=== PATIENT | male | born 1985 | race African-American/Black ===

== ENCOUNTER 2016-11-04 13:30 | Emergency (ER) | payer SELFPAY ==
[~2016-11-04] VITALS: Ht 182.9 cm; Wt 90.7 kg
[~2016-11-04 13:30] MED LIST: TRAM1TAB4 PO
[2016-11-04 13:46] VITALS: BP 133/78
[2016-11-04] MEDS ORDERED: IBUPROFEN 800 MG TABLET. PO ONE (14:30)
--- NOTE | 2016-11-04 15:29 | RAD ---
Indication nontraumatic pain. AP and lateral views of the right calcaneus were obtained. No acute or significant bony finding is seen involving the calcaneus
--- NOTE | 2016-11-04 15:38 | PHYS DOC ---
Past Medical History Past Medical History: No Pertinent History Past Surgical History: No Surgical History Alcohol Use: Heavy Drug Use: None Adult General Chief Complaint Chief Complaint: FOOT INJURY PAIN HPI HPI Patient is a 31 year old male presents to the emergency department with a c/o right heel pain. Patient states he woke up with the pain. Denies taking any medication for the pain. He is unsure if he injured the heel as he states it was 03 of November. Patient states he was parting last night and cannot remember what has happened. Denies numbness or tingling to the toes, good sensation noted. Review of Systems Review of Systems Constitutional: Denies fever or chills [] Eyes: Denies change in visual acuity, redness, or eye pain [] HENT: Denies nasal congestion or sore throat [] Respiratory: Denies cough or shortness of breath [] Cardiovascular: No additional information not addressed in HPI [] GI: Denies abdominal pain, nausea, vomiting, bloody stools or diarrhea [] : Denies dysuria or hematuria [] Musculoskeletal: Denies back pain or joint pain. Right heel pain Integument: Denies rash or skin lesions [] Neurologic: Denies headache, focal weakness or sensory changes [] Endocrine: Denies polyuria or polydipsia [] Current Medications Current Medications Current Medications Medications (Trade) Dose Ordered Sig/Master Start Time Stop Time Status Last Admin Dose Admin Ibuprofen (Motrin) 800 mg 1X ONCE 11/04/16 14:30 11/04/16 14:31 DC 11/04/16 14:30 800 MG Allergies Allergies Allergies Coded Allergies Type Severity Reaction Last Updated Verified Penicillins Allergy Mild 04/29/16 Yes Physical Exam Physical Exam Constitutional: Well developed, well nourished, no acute distress, non-toxic appearance. [] HENT: Normocephalic, atraumatic, bilateral external ears normal, oropharynx moist, no oral exudates, nose normal. [] Eyes: PERRLA, EOMI, conjunctiva normal, no discharge. [] Neck: Normal range of motion, no tenderness, supple, no stridor. [] Cardiovascular:Heart rate regular rhythm, no murmur [] Lungs & Thorax: Bilateral breath sounds clear to auscultation [] Skin: Warm, dry, no erythema, no rash. [] Back: No tenderness Extremities: No tenderness, no cyanosis, no clubbing, ROM intact, no edema. Right heel tenderness, no bruising or discoloration noted. Peripheral pulses 2+ cap refill brisk < 2 seconds. Neurologic: Alert and oriented X 3, normal motor function, normal sensory function, no focal deficits noted. [] Psychologic: Affect normal, judgement normal, mood normal. [] Current Patient Data Vital Signs Vital Signs Date Time Temp Pulse Resp B/P (MAP) Pulse Ox O2 Delivery O2 Flow Rate FiO2 11/04/16 13:46 98.3 73 20 97 Room Air 98.3 EKG EKG [] Radiology/Procedures Radiology/Procedures [] Course & Med Decision Making Course & Med Decision Making Pertinent Labs and Imaging studies reviewed. (See chart for details) Patient was provided with x-ray results. Patient was provided with discharge instructions, treatment regimen and followup recommendations. Recommended Ibuprofen for pain and discomfort. Ice packs on 20 minutes and off 20 minutes several times a day. Signs and symptoms to return to the emergency department has been provided. Patient agrees with discharge instructions, treatment regimen and followup recommendations. [] Dragon Disclaimer Dragon Disclaimer This electronic medical record was generated, in whole or in part, using a voice recognition dictation system. Departure Departure Impression: Primary Impression: Contusion of right heel Disposition: HOME, SELF-CARE Condition: STABLE Referrals: NO PCP (PCP) Patient Instructions: Contusion, [id number] Additional Instructions: Activity as tolerated Ibuprofen for pain and discomfort Ice packs on 20 minutes and off 20 minutes several times a day Elevation as much as possible Followup with your primary care provider in 7-10 days Return to emergency department as needed for signs and symptoms that become worse. BALJIT DOUGLAS DISASTER OR DAMAGE CONTROL SPECIALIST Nov 04, 2016 15:38
== END 2016-11-04 15:40 | disposition home or self-care (01) ==
LOC: ER 13:30
DX: S90.31XA Contusion of right foot, initial encounter (principal); F10.10 Alcohol abuse, uncomplicated; Z88.0 Allergy status to penicillin; X58.XXXA Exposure to other specified factors, initial encounter; Y93.89 Activity, other specified; Y99.8 Other external cause status; Y92.89 Other specified places as the place of occurrence of the external cause
CPT/HCPCS: 73650; 99284

== ENCOUNTER 2018-07-26 14:31 | Emergency (ER) | payer SELFPAY ==
[~2018-07-26] VITALS: Ht 185.4 cm; Wt 95.3 kg
[2018-07-26 14:38] VITALS: BP 143/62
[2018-07-26] MEDS ORDERED: TOLN30CR2 TP (15:11)
--- NOTE | 2018-07-26 15:12 | PHYS DOC ---
Past Medical History Past Medical History: No Pertinent History Past Surgical History: No Surgical History Alcohol Use: Heavy Drug Use: None Adult General Chief Complaint Chief Complaint: LOWER EXT PAIN HPI HPI Patient is a 33 year old male who presents with athletes's foot and a bump to the bottom of his left foot that hurts when he walks on it. Review of Systems Review of Systems Constitutional: Denies fever or chills [] Respiratory: Denies cough or shortness of breath [] Cardiovascular: No additional information not addressed in HPI [] Musculoskeletal: Denies back pain or joint pain [] Integument: See HPI Neurologic: Denies headache, focal weakness or sensory changes [] Endocrine: Denies polyuria or polydipsia [] All other systems were reviewed and found to be within normal limits, except as documented in this note. Allergies Allergies Allergies Coded Allergies Type Severity Reaction Last Updated Verified Penicillins Allergy Mild 04/29/16 Yes Physical Exam Physical Exam Constitutional: Well developed, well nourished, no acute distress, non-toxic appearance. [] Cardiovascular:Heart rate regular rhythm, no murmur [] Lungs & Thorax: Bilateral breath sounds clear to auscultation [] Abdomen: Bowel sounds normal, soft, no tenderness, no masses, no pulsatile masses. [] Skin: rash to bilateral feet, especially between the toes, plantar wart noted to foot Back: No tenderness, no CVA tenderness. [] Extremities: No tenderness, no cyanosis, no clubbing, ROM intact, no edema. [] Neurologic: Alert and oriented X 3, normal motor function, normal sensory function, no focal deficits noted. [] Psychologic: Affect normal, judgement normal, mood normal. [] Current Patient Data Vital Signs EKG EKG [] Radiology/Procedures Radiology/Procedures [] Course & Med Decision Making Course & Med Decision Making Pertinent Labs and Imaging studies reviewed. (See chart for details) []Follow up with podiatry or buy a wart remover kit and use as directed. Lisa Disclaimer Lisa Disclaimer This electronic medical record was generated, in whole or in part, using a voice recognition dictation system. Departure Departure Impression: Primary Impression: Athlete's foot on left Additional Impression: Plantar wart Disposition: 01 HOME, SELF-CARE Condition: STABLE Referrals: NO PCP (PCP) BOBBY BOWMAN DPM Patient Instructions: Athlete's Foot, Plantar Warts, [id number] Additional Instructions: Use the medication as directed. You may use [id number] plantar wart remover or follow-up with podiatry. Scripts Tolnaftate (TINACTIN) 30 Gm Cream..g. 30 GM TP as package directs for athlete's foot, #1 EACH Prov: ALEX BRANHAM APRN 07/26/18 Problem Qualifiers ALEX BRANHAM APRN Jul 26, 2018 15:12
== END 2018-07-26 15:11 | disposition home or self-care (01) ==
LOC: ER 14:31
DX: B35.3 Tinea pedis (principal); B07.0 Plantar wart; Z88.0 Allergy status to penicillin
CPT/HCPCS: 99282

== ENCOUNTER 2018-12-29 11:32 | Emergency (ER) | payer SELFPAY ==
[~2018-12-29] VITALS: Ht 185.4 cm; Wt 86.7 kg
[~2018-12-29 11:32] MED LIST changes: +TOLN30CR2 TP
[2018-12-29 11:50] VITALS: BP 118/64
[2018-12-29] MEDS ORDERED: NAPROXEN 500 MG TABLET PO STA (11:59)
--- NOTE | 2018-12-29 12:08 | PHYS DOC ---
Past Medical History Past Medical History: No Pertinent History Past Surgical History: No Surgical History Alcohol Use: Heavy Drug Use: None Adult General Chief Complaint Chief Complaint: MECHANICAL FALL HPI HPI Patient is a 33 year old male with no significant medical history who presents to the ED today complaining of moderate sharp constant right low back pain nonradiating in nature that began today after he fell, patient states he was getting out of an elevator walking fast, he states he stepped on a wet floor and fell landing on his right buttock. Patient denies any loss of consciousness. He states the pain is worse on sitting on his right buttock. Denies anything specifically relieving the pain. Denies any loss of bowel bladder function. Denies any numbness or tingling to bilateral lower extremities. Review of Systems Review of Systems Constitutional: Denies fever or chills [] GI: Denies abdominal pain, nausea, vomiting, bloody stools or diarrhea [] : Denies dysuria or hematuria [] Musculoskeletal: Denies back pain or joint pain [] Integument: Denies rash or skin lesions [] Neurologic: Denies headache, focal weakness or sensory changes [] All other systems were reviewed and found to be within normal limits, except as documented in this note. Current Medications Current Medications Current Medications Medications (Trade) Dose Ordered Sig/Master Start Time Stop Time Status Last Admin Dose Admin Acetaminophen/ Hydrocodone Bitart (Lortab 5/325) 2 tab 1X ONCE 12/29/18 12:30 12/29/18 12:31 DC 12/29/18 12:09 2 TAB Cyclobenzaprine HCl (Flexeril) 10 mg 1X ONCE 12/29/18 12:30 12/29/18 12:31 DC 12/29/18 12:09 10 MG Naproxen (Naprosyn) 500 mg 1X STAT 12/29/18 11:59 12/29/18 12:01 DC 12/29/18 12:09 500 MG Allergies Allergies Allergies Coded Allergies Type Severity Reaction Last Updated Verified Penicillins Allergy Mild 12/29/18 Yes Physical Exam Physical Exam Constitutional: Well developed, well nourished, no acute distress, non-toxic appearance. [] Abdomen: Bowel sounds normal, soft, no tenderness, no masses, no pulsatile masses. [] Skin: Warm, dry, no erythema, no rash. [] Back: Patient is favoring the right buttocks when sleeping, tenderness on palpation of the right SI joint as well as paraspinal muscle tenderness to the right lumbar spine, slight midline lumbar spine tenderness, no CVA tenderness. Positive right leg straight rise Extremities: No tenderness, no cyanosis, no clubbing, ROM intact, no edema. [] Neurologic: Alert and oriented X 3, normal motor function, normal sensory function, no focal deficits noted. [] Psychologic: Affect normal, judgement normal, mood normal. [] Current Patient Data Vital Signs Vital Signs Date Time Temp Pulse Resp B/P (MAP) Pulse Ox O2 Delivery O2 Flow Rate FiO2 12/29/18 12:09 16 99 Room Air 12/29/18 11:50 97.6 98 118/64 (82) 97.6 EKG EKG [] Radiology/Procedures Radiology/Procedures []PROCEDURE: CT LUMBAR SPINE WO CONTRAST Examination: CT lumbar spine without contrast HISTORY: History of fall COMPARISON: None available TECHNIQUE: Axial CT images of the lumbar spine were performed without contrast. Coronal and sagittal reformats are performed Exposure: One or more of the following individualized dose reduction techniques were utilized for this examination: 1. Automated exposure control 2. Adjustment of the mA and/or kV according to patient size 3. Use of iterative reconstruction technique FINDINGS: The lumbar vertebral body heights are maintained. The bilateral facets are well aligned. There is no acute fracture or dislocation identified. Minimal disc bulges identified at L4-L5, L5-S1 vertebral levels. 5 lumbar vertebrae are assumed. IMPRESSION: No acute osseous findings. Electronically signed by: Francisco Chow MD (12/29/2018 12:27 PM) [facility] DICTATED and SIGNED BY: FRANCISCO CHOW MD DATE: 12/29/18 1227 Course & Med Decision Making Course & Med Decision Making Pertinent Labs and Imaging studies reviewed. (See chart for details) This is a 33-year-old male patient presenting to the ED today with right low back pain that began after he fell. No loss of consciousness. No cauda equina syndrome symptoms. Lumbar spine CT is negative for any acute findings. Discharged to home. Provided prescription for Medrol Dosepak, diclofenac and cyclobenzaprine. Ice elevation or heat recommended. Dragon Disclaimer Dragon Disclaimer This electronic medical record was generated, in whole or in part, using a voice recognition dictation system. Departure Departure Impression: Primary Impression: Fall from standing Additional Impression: Lumbar contusion Disposition: 01 HOME, SELF-CARE Condition: STABLE Referrals: NO PCP (PCP) Follow-up with your own doctor in 1-2 weeks Patient Instructions: Contusion, [id number], Fall Prevention and Home Safety Additional Instructions: You were elevated in the distant for back pain after falling, the lumbar spine CT is negative for any acute findings. You can apply heat or ice to the affected area. Try to elevate the affected area. Take the prescribed medications as ordered. Follow-up with your own doctor in one week. Scripts Diclofenac Potassium (DICLOFENAC POTASSIUM) 50 Mg Tablet 1 TAB PO BID, #20 TAB 0 Refills Prov: MITESH BRENNER APRN 12/29/18 Cyclobenzaprine Hcl (CYCLOBENZAPRINE HCL) 10 Mg Tablet 1 TAB PO TID, #30 TAB Prov: MITESH BRENNER APRN 12/29/18 Methylprednisolone (MEDROL) 4 Mg Tab.ds.pk 1 PKG PO UD, #1 PKG Prov: MITESH BRENNER APRN 12/29/18 Problem Qualifiers Primary Impression: Fall from standing Encounter type: initial encounter Qualified Codes: W19.XXXA - Unspecified fall, initial encounter Additional Impression: Lumbar contusion Encounter type: initial encounter Qualified Codes: S30.0XXA - Contusion of lower back and pelvis, initial encounter MITESH BRENNER APRN Dec 29, 2018 12:08
[2018-12-29] MEDS ORDERED: HYDROcodone/APAP 5/325MG 1 TAB TABLET PO ONE (12:30)
[2018-12-29] MEDS ORDERED: CYCLOBENZAPRINE 10 MG TABLET. PO ONE (12:30)
--- NOTE | 2018-12-29 12:30 | RAD ---
Examination: CT lumbar spine without contrast HISTORY: History of fall COMPARISON: None available TECHNIQUE: Axial CT images of the lumbar spine were performed without contrast. Coronal and sagittal reformats are performed Exposure: One or more of the following individualized dose reduction techniques were utilized for this examination: 1. Automated exposure control 2. Adjustment of the mA and/or kV according to patient size 3. Use of iterative reconstruction technique FINDINGS: The lumbar vertebral body heights are maintained. The bilateral facets are well aligned. There is no acute fracture or dislocation identified. Minimal disc bulges identified at L4-L5, L5-S1 vertebral levels. 5 lumbar vertebrae are assumed. IMPRESSION: No acute osseous findings. Electronically signed by: Francisco Chow MD (12/29/2018 12:27 PM) [place] [id number]
[2018-12-29] MEDS ORDERED: CYCL10TA2 PO (12:37)
[2018-12-29] MEDS ORDERED: METH4TAB2 PO (12:37)
[2018-12-29] MEDS ORDERED: DICL50TA2 PO (12:37)
== END 2018-12-29 12:51 | disposition home or self-care (01) ==
LOC: ER 11:32
DX: S30.0XXA Contusion of lower back and pelvis, initial encounter (principal); F10.20 Alcohol dependence, uncomplicated; Y90.9 Presence of alcohol in blood, level not specified; Z88.0 Allergy status to penicillin; W18.39XA Other fall on same level, initial encounter; Y93.01 Activity, walking, marching and hiking; Y92.89 Other specified places as the place of occurrence of the external cause; Y99.8 Other external cause status
CPT/HCPCS: 72131; 99284

== ENCOUNTER 2019-05-19 16:47 | Emergency (ER) | payer SELFPAY ==
[~2019-05-19] VITALS: Ht 185.4 cm; Wt 93.0 kg
[~2019-05-19 16:47] MED LIST changes: +CYCL10TA2 PO; +DICL50TA2 PO; +METH4TAB2 PO
[2019-05-19 17:38] VITALS: BP 160/100
--- NOTE | 2019-05-19 17:54 | PHYS DOC ---
Past Medical History Past Medical History: No Pertinent History Past Surgical History: No Surgical History Alcohol Use: Heavy Drug Use: None Adult General Chief Complaint Chief Complaint: WRIST PAIN HPI HPI Patient is a 34 year old Male who presents with 2 days of sudden onset pain in the left hand and wrist especially with movement. He states he is also awakening with left hand swelling. He states he uses the hand a lot using Tongs at work. He states that his artificial plastic eye maker is weak and in that hand. Rates his pain a 6 out of 10 and states times is sharp and radiates up arm.. Review of Systems Review of Systems Musculoskeletal: Denies back pain. Left wrist and hand joint pain [] Integument: Left wrist lump. Denies rash or skin lesions [] All other systems were reviewed and found to be within normal limits, except as documented in this note. Allergies Allergies Allergies Coded Allergies Type Severity Reaction Last Updated Verified Penicillins Allergy Mild 12/29/18 Yes Physical Exam Physical Exam Constitutional: Well developed, well nourished, no acute distress, non-toxic appearance. [] HENT: Normocephalic, atraumatic, bilateral external ears normal, oropharynx moist, no oral exudates, nose normal. [] Eyes: PERRLA, EOMI, conjunctiva normal, no discharge. [] Neck: Normal range of motion, no tenderness, supple, no stridor. [] Cardiovascular:Heart rate regular rhythm, no murmur [] Lungs & Thorax: Bilateral breath sounds clear to auscultation [] Abdomen: Bowel sounds normal, soft, no tenderness, no masses, no pulsatile masses. [] Skin: Left wrist radial soft lump. Warm, dry, no erythema, no rash. [] Back: No tenderness, no CVA tenderness. [] Extremities: Left palm tenderness, no cyanosis, no clubbing, ROM intact, 1+ edema. [] Neurologic: Alert and oriented X 3, normal motor function, normal sensory function, no focal deficits noted. [] Psychologic: Affect normal, judgement normal, mood normal. [] Current Patient Data Vital Signs Vital Signs Date Time Temp Pulse Resp B/P (MAP) Pulse Ox O2 Delivery O2 Flow Rate FiO2 05/19/19 17:38 98.3 76 15 160/100 (120) 100 Room Air 98.3 EKG EKG [] Radiology/Procedures Radiology/Procedures [] Impressions: [facility] [id number] [place] [address] IMAGING REPORT Signed PATIENT: KOSTA ALVARADO ACCOUNT: [id number] : 1985 LOCATION: ER AGE: 34 SEX: M EXAM STATUS: REG ER ORD. PHYSICIAN: BALJIT SANCHEZ APRN REASON: NUMBNESS, PAIN, SWELLING, IN HAND AND LUMP ON WRIST PROCEDURE: VENOUS UPPER EXTREMITY LEFT STUDY: US VENOUS UPPER EXTREMITY LEFT INDICATION: Numbness, pain and swelling. TECHNIQUE: Color-flow and pulsed wave duplex ultrasound with compression of venous structures of the left upper extremity. COMPARISON: None Available. FINDINGS: Duplex ultrasound with compression of the deep venous structures of the left upper extremity from the internal jugular vein through the radial/ulnar veins is negative for DVT. At the proximal aspect of the wrist is an avascular, complex cystic focus measuring 1.2 x 0.7 x 0.5 cm located subjacent to the radial artery and vein which are draped along the superficial margin of this structure. IMPRESSION: 1. No deep venous thrombosis seen throughout the left upper extremity. 2. The radial artery and vein are draped over the top of a complex cystic focus at the proximal aspect of the wrist that is most likely a ganglion cyst. This presumed ganglia measures 1.2 x 0.7 x 0.5 cm. Electronically signed by: SCOT GUNN MD (05/19/2019 6:50 PM) [facility] DICTATED and SIGNED BY: SCOT GUNN MD DATE: 05/19/191849 Course & Med Decision Making Course & Med Decision Making Tenderness to Palm with palpation. Patient has a left radial side wrist cystic- like lump that is soft and non-movable. Radial pulses present. Left hand has 1+ edema. Skin pink warm and dry. Cap refill less than 3 seconds. Full ROM in left wrist. Denies injury. Less strength in artificial plastic eye maker in left hand. [] Dragon Disclaimer Dragon Disclaimer This electronic medical record was generated, in whole or in part, using a voice recognition dictation system. Departure Departure Impression: Primary Impression: Ganglion cyst Disposition: HOME, SELF-CARE Condition: STABLE Referrals: NO PCP (PCP) ABERLE,DEUCE S II MD Patient Instructions: Carpal Tunnel Syndrome, [id number], Carpal Tunnel Syndrome-SportsMed, Ganglion Cyst Additional Instructions: Follow up with a primary care provider or Orthopedic that I have referred you too. BALJIT SANCHEZ FOOD SAFETY SCIENTIST May 19, 2019 17:54
--- NOTE | 2019-05-19 18:53 | RAD ---
STUDY: US VENOUS UPPER EXTREMITY LEFT INDICATION: Numbness, pain and swelling. TECHNIQUE: Color-flow and pulsed wave duplex ultrasound with compression of venous structures of the left upper extremity. COMPARISON: None Available. FINDINGS: Duplex ultrasound with compression of the deep venous structures of the left upper extremity from the internal jugular vein through the radial/ulnar veins is negative for DVT. At the proximal aspect of the wrist is an avascular, complex cystic focus measuring 1.2 x 0.7 x 0.5 cm located subjacent to the radial artery and vein which are draped along the superficial margin of this structure. IMPRESSION: 1. No deep venous thrombosis seen throughout the left upper extremity. 2. The radial artery and vein are draped over the top of a complex cystic focus at the proximal aspect of the wrist that is most likely a ganglion cyst. This presumed ganglia measures 1.2 x 0.7 x 0.5 cm. Electronically signed by: SCOT GUNN MD (05/19/2019 6:50 PM) [facility]
== END 2019-05-19 19:05 | disposition home or self-care (01) ==
LOC: ER 16:47
DX: M67.432 Ganglion, left wrist (principal); F10.20 Alcohol dependence, uncomplicated; Z88.0 Allergy status to penicillin; Y90.9 Presence of alcohol in blood, level not specified
CPT/HCPCS: 93971; 99284-25

== ENCOUNTER 2021-08-14 22:24 | Emergency (ER) | payer SELFPAY ==
[~2021-08-14] VITALS: Ht 185.4 cm; Wt 96.8 kg
[~2021-08-14 22:24] MED LIST changes: +CYCL10TA19 PO; -CYCL10TA2 PO
[2021-08-14 22:46] VITALS: BP 127/64
[2021-08-14] MEDS ORDERED: IBUPROFEN 400 MG TABLET. PO ONE (23:00)
[2021-08-14] MEDS ORDERED: ACETAMINOPHEN 500 MG TABLET PO ONE (23:00)
--- NOTE | 2021-08-14 23:04 | PHYS DOC ---
Past Medical History Past Medical History: No Pertinent History Past Surgical History: No Surgical History Smoking Status: Current Every Day Smoker Alcohol Use: Heavy Drug Use: None Adult General Chief Complaint Chief Complaint: SHOULDER INJURY HPI HPI The patient is a 36-year-old male who is otherwise healthy. He presents for evaluation of right shoulder discomfort with onset this morning upon awakening from sleep. Tells me that he was "wrestling" at some length yesterday but does not remember any specific injury to the shoulder. Also appears to do heavy li fting at work. Able to range the shoulder in all dimensions with some mild limitation in forward flexion and extension due to pain past about 90 degrees. Denies discomfort anywhere aside from to the right shoulder. Discomfort localizes to the posterior aspect of the right shoulder focally. Patient denies fevers, nausea or vomiting, shortness of breath or chest pain, rib pain, other systemic symptoms of concern. Vital signs are appropriate. He is in no acute distress. No therapy at all for symptoms prior to arrival. Review of Systems Review of Systems A 12 point review of systems was completed and was negative except where noted in HPI above. Current Medications Current Medications Current Medications Medications (Trade) Dose Ordered Sig/Master Start Time Stop Time Status Last Admin Dose Admin Acetaminophen (Tylenol) 1,000 mg 1X ONCE 08/14/21 23:00 08/14/21 23:01 DC 08/14/21 23:02 1,000 MG Ibuprofen (Motrin) 800 mg 1X ONCE 08/14/21 23:00 08/14/21 23:01 DC 08/14/21 23:02 800 MG Allergies Allergies Allergies Coded Allergies Type Severity Reaction Last Updated Verified Penicillins Allergy Mild 08/14/21 Yes Physical Exam Physical Exam 36-year-old male appearing nontoxic and in no acute distress. Head is normocephalic and atraumatic. Neck is supple and nontender. No neck stiffness/rigidity/meningismus seen and patient ranges neck fully in all dimensions that discomfort or distress. Oropharynx is moist. Lungs are clear to auscultation at all stations. There is a normal S1 and S2 without rubs or gallops and capillary refill is appropriate, less than 2 seconds globally. Abdomen is soft, nontender and nondistended. Skin is warm and dry without cyanosis, clubbing or edema. Psychiatrically, the patient demonstrates appropriate mood and affect and is alert. Evaluation of the extremities reveals BUEs and BLEs neurovascularly intact distally strength 5-5, sensation intact light touch in all nerve distributions, radial, DP and PT pulses 2+ and equal bilaterally, capillary refill less than 2 seconds, hands and feet warm and well- perfused. No dependent peripheral edema distally. No calf tenderness or swelling bilaterally. Homans test is negative bilaterally. There is mild tenderness to palpation without erythema, warmth, swelling or joint irritability noted to the posterior superior aspect of the right shoulder. Mild limitation in forward flexion and extension past about 90 degrees secondary to discomfort. No discomfort with ranging of any other joint of the right upper extremity. Current Patient Data Vital Signs Vital Signs Date Time Temp Pulse Resp B/P (MAP) Pulse Ox O2 Delivery O2 Flow Rate FiO2 08/14/21 22:46 98.7 79 14 127/64 (85) 95 Room Air 98.7 EKG EKG [] Radiology/Procedures Radiology/Procedures EXAM: 3 Views Right Shoulder DATE: 08/14/2021 11:17 PM INDICATION: Reason: pain, ?injury yest / Spl. Instructions: / History: COMPARISON: No Prior FINDINGS: There is no evidence for acute fracture or dislocation. AC joint is congruent. L ucency within the glenoid, possibly degenerative cystic change. Humeral head is not high riding. IMPRESSION: 1. No acute fracture or dislocation. 2. Lucency within the glenoid, possibly degenerative cystic change. Electronically signed by: Ishmael Baptiste MD (08/14/2021 11:39 PM) [facility] DICTATED and SIGNED BY: ISHMAEL BAPTISTE MD DATE: 08/14/21 8038 Course & Med Decision Making Course & Med Decision Making We will check plain films of the shoulder, give ibuprofen and Tylenol and an ice pack and apply a sling for comfort. If plain films are reassuring, anticipate discharge home with sling and anti-inflammatory course to rest, ice, elevate and follow-up closely with primary care. Patient understands and agrees with this plan of care. 1202: Patient feeling better. Plain films without evidence of fracture but are suggestive of some mild degenerative change. Will discharge home as per plan above. Will refer to orthopedics as well per patient request for close follow- up in the office and further subspecialist care. Patient understands that if he feels worse instead of better or develops other new symptoms of concern that he will need to return the emergency department immediately for reevaluation. All questions are answered. Dragon Disclaimer Dragon Disclaimer This electronic medical record was generated, in whole or in part, using a voice recognition dictation system. Departure Departure Impression: Primary Impression: Acute pain of right shoulder Disposition: HOME / SELF CARE / HOMELESS Condition: IMPROVED Referrals: DIEGO BARBER Jr. DO Patient Instructions: Musculoskeletal Pain Additional Instructions: Follow-up very closely with Dr. Barber of orthopedics in the office in the next 3 to 5 days for reevaluation of your symptoms and discussion of next best steps in care. Rest, ice and elevate your shoulder. Wear the sling for comfort and support. Take a 600 mg ibuprofen every 6 hours for discomfort, with food to prevent stomach upset. Take on a scheduled for the first few days and then as needed after that. Return to the emergency department right away for worsening symptoms of any kind or with any other new symptoms of concern. Scripts Ibuprofen (IBUPROFEN) 600 Mg Tablet 600 MG PO PRN Q6HRS PRN for PAIN, #24 TAB take with food or milk Prov: JULIANE KEMP MD 08/15/21 JULIANE KEMP MD Aug 14, 2021 23:04
--- NOTE | 2021-08-14 23:41 | RAD ---
EXAM: 3 Views Right Shoulder DATE: 08/14/2021 11:17 PM INDICATION: Reason: pain, ?injury yest / Spl. Instructions: / History: COMPARISON: No Prior FINDINGS: There is no evidence for acute fracture or dislocation. AC joint is congruent. Lucency within the gle noid, possibly degenerative cystic change. Humeral head is not high riding. IMPRESSION: 1. No acute fracture or dislocation. 2. Lucency within the glenoid, possibly degenerative cystic change. Electronically signed by: Ishmale Lawton MD (08/14/2021 11:39 PM) [facility]UL[facility]
[2021-08-15] MEDS ORDERED: IBUP-1007 PO (00:04)
== END 2021-08-15 00:35 | disposition home or self-care (01) ==
LOC: ER 22:24
DX: M25.511 Pain in right shoulder (principal); F17.200 Nicotine dependence, unspecified, uncomplicated; F10.20 Alcohol dependence, uncomplicated; Y90.9 Presence of alcohol in blood, level not specified; Z88.0 Allergy status to penicillin
CPT/HCPCS: 73030; 99283; A4565